=== PATIENT | female | born 2005 | race Caucasian/White ===

== ENCOUNTER 2025-10-14 03:04 | Emergency (ER) | payer OTHER, SELFPAY ==
[2025-10-14 03:10] VITALS: BP 159/112; PULSE 125; RESP 28; TEMP 36.9; O2SAT 100
--- NOTE | 2025-10-14 03:16 | ED.ALLEREA ---
HPI - Allergic Reaction General Chief complaint: Allergic Reaction Stated complaint: allergic reaction Time Seen by Provider: 10/14/25 03:14 History of Present Illness HPI narrative: 20-year-old otherwise healthy female presenting to the ER with suspected allergic reaction. She was out with friends during a friend's [place] gathering where she was drinking and eating. She is not sure what her allergic reaction is potentially 2 but 2 hours ago she started noticing some red splotchy discoloration on her face and neck and now she is having some scratchy sensations with swallowing and feels like the redness is worsening. Has a history of something similar happening with coconut exposure but does not think she had any coconut today. She tried a new Tequila but otherwise nothing out of the ordinary that she can remember. Denies any nausea, vomiting, vision changes, diarrhea, abdominal pain, fever, chills. She states her face feels warm and flushed as well as having the throat sensation of scratchiness but no difficulty swallowing or difficulty with secretions. No history of anaphylaxis. Does not have any allergies to medications that she knows of. Related Data Allergies Allergy/AdvReac Type Severity Reaction Status Date / Time coconut AdvReac Mild Hives Verified 10/14/25 03:06 Review of Systems Review of Systems: As reviewed above in HPI All systems reviewed & are unremarkable except as noted in HPI and below Exam Narrative: GENERAL: Tachypneic and mildly tachycardia, red splotchy discoloration over the face and anterior neck HEAD: [Normocephalic, atraumatic.] EYES: [PERRLA and EOMI.] ENT: Nares clear, no rhinorrhea or epistaxis. Mucous membranes moist. NECK: Supple. CHEST: No wheezing, or respiratory distress. Mild tachypnea noted HEART: [Regular rate and rhythm]. No murmur heard. [Normal peripheral pulses.] ABDOMEN: [Soft, nondistended], [nontender], [No rigidity or guarding] EXTREMITIES: Normal range of motion. [No edema.] SKIN: red splotchy discoloration over the face and anterior neck NEURO: [No focal deficits]. Alert and oriented [x3.] PSYCH: [Normal mood and affect.] Course Vital Signs Vital signs: Vital Signs Temperature 36.9 C 10/14/25 03:10 Pulse Rate 125 H 10/14/25 03:10 Respiratory Rate 28 H 10/14/25 03:10 Blood Pressure 159/112 H 10/14/25 03:10 Pulse Oximetry 100 10/14/25 03:10 Oxygen Delivery Room Air 10/14/25 03:10 Temperature 36.9 C 10/14/25 03:10 Pulse Rate 90 10/14/25 04:05 Respiratory Rate 18 10/14/25 04:05 Blood Pressure 122/74 10/14/25 04:05 Pulse Oximetry 98 10/14/25 04:05 Oxygen Delivery Room Air 10/14/25 03:10 MDM MDM Narrative Medical decision making narrative: 20-year-old otherwise healthy female presenting to the ER with suspected allergic reaction. She was out with friends during a friend's [place] gathering where she was drinking and eating. She is not sure what her allergic reaction is potentially 2 but 2 hours ago she started noticing some red splotchy discoloration on her face and neck and now she is having some scratchy sensations with swallowing and feels like the redness is worsening. Has a history of something similar happening with coconut exposure but does not think she had any coconut today. She tried a new Tequila but otherwise nothing out of the ordinary that she can remember. Denies any nausea, vomiting, vision changes, diarrhea, abdominal pain, fever, chills. She states her face feels warm and flushed as well as having the throat sensation of scratchiness but no difficulty swallowing or difficulty with secretions. No history of anaphylaxis. Does not have any allergies to medications that she knows of. Patient does have some red splotchy discoloration towards her neck and face consistent with hives. She endorses scratchy throat sensation but has a patent oropharynx. No uvular edema or deviation. No base of tongue swelling. No wheezing or decreased air entry. Symptoms consistent with allergic reaction. Low suspicion and flexes. She was given Pepcid, diphenhydramine, fluids, steroids and basic labs were obtained. She was placed on monitor and observe. Discussed with her epinephrine if needed but currently she is speaking in full clear sentences without any respiratory distress and overall well-appearing. Symptoms completely resolved after antihistamines and steroids. She feels much better. All vital signs are normal. No tachycardia, tachypnea or blood pressure concerns. No further rebound symptoms while observed here for several hours. Laboratory studies are largely unremarkable. Did discuss with her unknown cause of her allergic reaction but will prescribe her epinephrine autoinjector in case she has a severe allergic reaction to anything in the future. Given return precautions and patient verbalized understanding and she was safe for discharge. Differential Diagnosis Differential Diagnosis: Allergic reaction versus anaphylaxis Lab Data MDM Lab Attestation statement: I personally reviewed the patient's lab results. 10/14/25 03:20 10/14/25 03:20 Labs: Lab Results 10/14/25 Range/Units 03:20 WBC 11.7 H (4.5-10.0) K/mm3 RBC 4.55 (4.2-5.4) M/mm3 Hgb 14.1 (12.0-15.0) g/dL Hct 40.8 (37.0-47.0) % MCV 89.7 (80-100) fl MCH 31.0 (26-34) pg MCHC 34.6 (32-36) g/dl RDW 12.1 (11.5-14.5) % Plt Count 328 (150-375) k/mm3 MPV 9.2 (7.4-10.4) fl Immature Gran % (Auto) 0.3 (0-0.5) % Neut % (Auto) 47.6 (45.5-73.1) % Lymph % (Auto) 42.2 (18.3-44.2) % Thayer % (Auto) 7.3 (2.6-8.5) % Eos % (Auto) 2.0 (0-4.4) % Baso % (Auto) 0.6 (0.2-1.2) % Lymph # (Auto) 4.94 H (0.9-3.2) K/mm3 Thayer # (Auto) 0.9 H (0.1-0.6) K/mm3 Eos # (Auto) 0.2 (0-0.3) K/mm3 Baso # (Auto) 0.1 (0.0-0.1) K/mm3 Abs Immat Gran (auto) 0.03 (0.00-0.031) K/mm3 Absolute Neuts (auto) 5.6 (1.3-6.7) K/mm3 Absolute Nucleated RBC 0.000 (0.0-0.012) K/mm3 Nucleated RBC % 0.0 (0.0-0.2) % Sodium 139 (137-145) mmol/L Potassium 3.4 (3.4-5.0) mmol/L Chloride 105 (98-107) mmol/L Carbon Dioxide 24 (22-30) mmol/L Anion Gap 10 (4-12) mmol/L BUN 12 (7-17) mg/dL Creatinine 0.74 (0.7-1.0) mg/dL Estim Creat Clear Calc Not Reportable Estimated GFR > 60 (59 - ) Glucose 104 (65-110) mg/dL Calcium 10.0 (8.4-10.2) mg/dL Discharge Plan Discharge Clinical Impression: Allergic reaction Patient Disposition: Home Condition: Stable Instructions: Antibiotic Form, Urticaria (ED), Anaphylaxis (ED), Acute Rash (ED), Allergies (ED) Additional Instructions: Treated for an allergic reaction. Will prescribe you epinephrine pending case of a severe allergy to anything in the future. Return with any emergent concerns. If you have any residual remaining symptoms you can take additional 50 mg Benadryl up to 3 times a day. Return if you experience throat closing sensation, losing consciousness, difficulty breathing, any other emergent concerns. If you end up using the epinephrine pen during any other episodes in the future please seek medical attention afterwards. Patient Language: Kittitian Prescriptions: New epinephrine [EpiPen 2-Vernon] 0.3 mg/0.3 mL auto-injector 0.3 mg IM ONCE Qty: 2 0RF Rx Instructions: as a single dose; may repeat once Follow-up/Referrals: PHYSICIAN,VOCAL MUSIC TEACHER [Primary Care Provider, Internal Medicine] Time of Disposition: 04:48
[2025-10-14] MEDS: SODIUM CHLORIDE 0.9% IV 1,000 ML 999 ML IV CONT (03:23)
[2025-10-14 03:25] LABS: Hematocrit 40.8 % (37.0-47.0); Hemoglobin 14.1 g/dL (12.0-15.0); Immature Granulocyte Percent A 0.3 % (0-0.5); Lymphocytes Absolute Auto 4.94 K/mm3 (0.9-3.2); Mean Corpuscular HGB Conc 34.6 g/dl (32-36); Mean Corpuscular Hemoglobin 31.0 pg (26-34); Mean Corpuscular Volume 89.7 fl (80-100); Nucleated Red Blood Cells Absolute Auto 0.000 K/mm3 (0.0-0.012); Nucleated Red Blood Cells Perc 0.0 % (0.0-0.2); Platelet Count Result 328 k/mm3 (150-375); Red Blood Count 4.55 M/mm3 (4.2-5.4); White Blood Count 11.7 K/mm3 (4.5-10.0)
[2025-10-14] MEDS: FAMOTIDINE 20 MG/2 ML VIAL IV PUSH (03:29)
[2025-10-14 03:37] LABS: Anion Gap 10 mmol/L (4-12); Blood Urea Nitrogen 12 mg/dL (7-17); Calcium 10.0 mg/dL (8.4-10.2); Carbon Dioxide 24 mmol/L (22-30); Chloride 105 mmol/L (98-107); Estimated Glomerular Filt Rate > 60; Glucose 104 mg/dL (65-110); Potassium 3.4 mmol/L (3.4-5.0); Sodium 139 mmol/L (137-145)
[2025-10-14] MEDS: ONDANSETRON INJ 4 MG/2 ML VIAL IV PUSH (03:47)
[2025-10-14 04:05] VITALS: BP 122/74; PULSE 90; RESP 18; O2SAT 98
--- OUTSIDE RECORDS SUMMARY | 2025-10-14 04:50 | XMS_ITS | Encounter Summary ---
Author Organization [facility] Address [address] [place] [address] Care Team Providers Care Biometrics Instructor Name Role Phone Jeff Mezt MD Primary Care Provider [phone] Reason for Visit * Reason Onset Date Comments Refill Request 09/30/2018 Encounter Details Date Type Department Care Team (Late st Contact Info) Description 09/30/2018 Telephone [facility] - [facility] [address] [place] [address] Jeff Metz MD [address] [place] [address] Refill Request Social History Tobacco Use Types Packs/Day Years Used Date Smoking Tobacco: Never Assessed Comments Unknown Sex and Gender Information Value Date Recorded Sex Assigned at Not on file Legal Sex Female 8:54 AM CDT Gender Identity Not on file Sexual Orientation Not on file documented as of this encounter Plan of Treatment Not on file documented as of this encounter Visit Diagnoses Not on filedocumented in this encounter Additional Health Concerns Infection Onset Date Last Indicated Resolved Time COVID-19 Under Investigation 07/04/2020 07/04/2020 07/05/2020 7:04 PM CDT documented as of this encounter Care Teams Biometrics Instructor Relationship Specialty Start Date End Date Jeff Metz MD [address] [place] [address] PCP - General Pediatrics 07/21/17 documented as of this encounter
--- OUTSIDE RECORDS SUMMARY | 2025-10-14 04:50 | XMS_ITS | Patient Health Record ---
Author Organization [facility] Address [address] [place], [place] [address] Care Team Providers Care Coil Placer Name Role Phone PT DOESNT KNOW NAME, . Primary Care Provider Lynne vailable Allergies No Known Allergies Reason For Referral No Information Medications Medication SIG (Take, Route, Frequency, Duration) Notes Start Date End Date Status Halog 0.1 % 1 application Externally Twice a day; Duration: 30 days 07/31/2020 Not-Taking PROzac Active Triamcinolone Acetonide 0.1 % 1 application to trunk/ext Externally Twice a day; Duration: 30 days 07/31/2020 Not-Taking Immunizations Vaccine Route Administration Date Status Comme nts Influenza, unspecified formu lation (CPT 40163 Inactive) Unknown 08/09/2018 Administered Influenza, unspecified formu lation (CPT 44990 Inactive) Unknown 07/18/2020 Administered Influenza, unspecified formu lation (CPT 95385 Inactive) Unknown 08/18/2023 Administered Pneumococcal polysaccharide PPV23 Unknown 01/31/2019 Re fused Pneumococcal polysaccharide PPV23 Unknown 05/24/2024 Re fused Social History Tobacco Use: Social History Observation Description Date Details (start date - stop date) Former Smoker NA - NA Tobacco Use/Smoking Question Answer Notes Are you a former smoker Problems Problem Type SNOMED Code ICD Code Onset Dates Problem Status W/U Status Risk Notes Problem Psoriasis vulgaris (258178241) Psoriasis vulgaris (L40.0) Active confirmed Unresponsive to dander shampoo and 1% hydrocortisone, will treat withvtama samples daily Problem Multiple benign melanocytic nevi (570664152) Multiple nevi (D22.9) Active confirmed Benign appearin g nevi were noted on head, neck, trunk or extremities. Patient education was provided including the ABCDs of melanoma and identification of nonmelanoma skin cancers as well as the importance of sun protection. Plan Of Treatment No Information Insurance Providers Payer Name Payer Address Payer Phone Subscriber Number Group Number Insured Name Patient Relationship to Insured Coverage Start Date Coverage End Date [facility] [address] [address] [place], [place] [id number] [employer] Child - Insured has Financial Responsibility Medical (General) History Medical History History ICD Code depression
--- OUTSIDE RECORDS SUMMARY | 2025-10-14 04:50 | XMS_ITS | Clinical Summary ---
Author Organization [facility] Address [address] [place] [address] Care Team Providers Care Geomagnetician Name Role Phone Katya Morales MD, Jeff Krishnamurthy Primary Care Provider Allergies No known active allergies Medications ferrous sulfate 325 mg (65 mg of elemental iron) tablet 12/30/2018 Active FLUoxetine (PROzac) 40 mg capsule Take 40 mg by mouth daily 10/01/2020 Active norethindrone-e. 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 Gender Identity Not on file Sexual Orientation Not on file Last Filed Vital Signs Vital Sign Reading Time Taken Comments Blood Pressure - - Pulse - - Temperature - - Respiratory Rate - - Oxygen Saturation - - Inhaled Oxygen Concentration - - Weight 111.6 kg (246 lb) 07/31/2021 3:44 PM CDT Height 172.7 cm (5' 8) 07/31/2021 3:44 PM CDT Body Mass Index 37.4 07/31/2021 3:44 PM CDT Plan of Treatment Not on file Insurance [facility] CHOICE PLUS [facility] CHOICE PLUS Care Teams Geomagnetician Relationship Specialty Start Date End Date Jeff Aldana Jr., MD [address] [place] [address] PCP - General Pediatrics 03/11/21
--- OUTSIDE RECORDS SUMMARY | 2025-10-14 04:50 | XMS_ITS | Clinical Summary ---
Author Organization [facility] behaview Address [address] [place] [address] Care Team Providers Care Punchboard Inserter Name Role Phone Jeff Metz MD Primary Care Provider [phone] Source Comments [facility],non-owned Affiliates and Associated Physician Practices is amultiple site organization consisting of ambulatory clinics and hospital sitesin [place], [place], [place] and [place]. This disclosure is being madepursuant to the Care Everywhere program and may not contain all information available regarding this patient. Last updated 18.[facility] Allergies No known active allergies Medications * This document contains information received from the source organization and may not represent a complete record from that organization. * Be aware that medications may not be up to date on this document. Alwaysverify current medications with the patient. methylphenidate CR (CONCERTA) 18 MG tablet Take 18 mg by mouth 11/24/2017 Active FEROSUL 325 (65 FE) MG tablet 12/30/2018 Activ e FLUoxetine (PROZAC) 40 MG capsule Take 40 mg by mouth once daily 10/01/2020 Active citalopram (CELEXA) 20 MG tablet Take 10 mg by mouth once daily 10/14/2020 Active vitamin D, ergocalciferol, (DRISDOL) 1.25 MG (42959 UT) capsule TAKE 1 CAPSULE BY MOUTH EVERY 7 DAYS 4 capsule 3 03/20/2021 Active ISIBLOOM 0.15-30 MG-MCG tablet TAKE 1 TABLET BY MOUTH EVERY DAY USING ONLY 4 PLACEBO PILLS 28 tablet 1 05/12/2021 Active Active Problems Patient Care Coordination No te Formatting of this note migh t be different from the original. Psychiatrist: Dr. Kwame Boudreaux at [facility] [phone] Problem Noted Date Diagnosed Date PCOS (polycystic ovarian syndrome) 04/09/2020 Assessment & Plan (04/09/2020 4:22 PM CDT): Patient presenting to adolescent clinic for routine follow up of PCOS currently managed with isibloom OCP. Patient reports consistent timing and duration of menstrual cycles but with significant increase in bleeding over the last ~6 months. Also reports 1 week of white vaginal discharge that has since resolved that was not associated with pain, pruritus, discomfort. Has been having abdominal pain, suprapubic and bilateral lower quadrants. Sexually active but with same partner as August 2019 when she was screened for STIs and negative. Low suspicion that bleeding and 1 week of discharge represents acute infection; more likely reflective of increased estrogen activity. Abdominal pain also not consistent with UTI/cystitis, may be related to ovarian cyst vs functional abdominal pain. Plan - switch to Lo Estrin due to increased bleeding with periods - urinalysis today - Abdominal and pelvic ultrasound as outpatient for abdominal pain; recommended about 1 week after next period Pediatric obesity 08/22/2018 Assessment & Plan (04/09/2020 4:25 PM CDT): BMI in clinic toda 34.17; weight has been stable compared to prior visits. At prior visit in August 2019 patient and parent expressed concern for binge eating habits which have since improved with both personal and family therapy, family meal time. States that desire to binge remains present but is easier to control. Mother expressed interest in meeting with tubing tester about reviewing Kaley's nutritional requirements. Plan - amb referral nutrition Assessment & Plan (08/22/2018 9:30 AM CDT): Currently BMI at 30.75 from 29.73 from 12/2017. Secondary amenorrhea 08/09/2017 Assessment & Plan (08/22/2018 9:02 AM CDT): Plan: Continue Apri. Follow up in Family History Medical History Relation Name Comments Drug Abuse Father in past Migraine Maternal Grandmother Migraine Mother with aura Celiac Disease Sister Diabetes - Type 1 Sister half mango purcell, age 10 Relation Name Status Comments Father Maternal Grandmother Mother Sister Social History Tobacco Use Types Packs/Day Years Used Date Smoking Tobacco: Never Smokeless Tobacco: Never Alcohol Use Standard Drinks/Week Comments No 0 (1 standard drink = 0.6 oz pur e alcohol) Comments No Sex and Gender Information Value Date Recorded Sex Assigned at Not on file Legal Sex Female 8:54 AM CDT Gender Identity Not on file Sexual Orientation Not on file Last Filed Vital Signs Vital Sign Reading Time Taken Comments Blood Pressure 145/88 05/24/2021 8:00 AM CDT Pulse 90 05/24/2021 8:25 AM CDT Temperature 37.2 C (99 F) 05/24/2021 6:01 AM CDT Respiratory Rate 21 05/24/2021 8:25 AM CDT Oxygen Saturation 98% 05/24/2021 8:25 AM CDT Inhaled Oxygen Concentration - - Weight 110.1 kg (242 lb 11.6 oz) 05/24/2021 6:01 AM CDT Height 173.7 cm (5' 8.39) 10/28/2020 2:58 PM CS T Body Mass Index - - Plan of Treatment Health Maintenance Due Date Last Done Comments HPV VACCINE (1 - 3-dose series) 2018 MENINGOCOCCAL (Group B) VACCINE SHARED DECISION-MAKING (1 of 2 - Standard) 2019 HEPATITIS C SCREENING 06/20/2021 CHLAMYDIA/GONORRHEA SCREENING 01/29/2022 01/29/2021, 10/28/2020, 08/31/2019, Additional history exists DTAP/TDAP/TD VACCINES (1 - Tdap) 2022 HEPATITIS B VACCINE (1 of 3 - 19+ 3-dose series) 2022 DEPRESSION SCREENING 11/01/2024 COVID-19 VACCINE (1 - 2024- season) 2025 INFLUENZA VACCINE (#1) 2025 ZOSTER VACCINE (1 of 2) 2053 HIV SCREENING Completed 11/18/2020, 08/22/2018 HIB VACCINE Aged Out No longer eligi ble based on patient's age to complete this topic MENINGOCOCCAL GROUPS A/C/Y/W VACCINE Aged Out No longer eligible based on patient's age to complete this topic PNEUMOCOCCAL VACCINE Aged Out No long er eligible based on patient's age to complete this topic Procedures Procedure Name Priority Date/Time Associated Diagnosis Comments HIV-1 HIV-2 ANTIBODY + HIV P24 AG PANEL Routine 11/18/2020 3:59 PM INSURANCE FOLLOW UP REP Routine screening for STI (sexually transmitted infection) CHLAMYDIA + GC AMPLIFIED PROBE Routine 10/28/2020 4:10 PM INSURANCE FOLLOW UP REP Routine screening for STI (sexually transmitted infection) PCOS (polycystic ovarian syndrome) from Last 3 Months or Most Recently Relevant to Health Maintenance Results * HIV-1 HIV-2 ANTIBODY + HIV P24 AG PANEL (11/18/2020 3:59 PM INSURANCE FOLLOW UP REP) Pathologist [facility] HIV1/2 Ab + P24 Ag Non Reactive Non Reactive 11/18/2020 5:17 PM INSURANCE FOLLOW UP REP [facility] Blood BLOOD SPECIMEN / Unknown Lab Venipuncture / Unknown 11/18/2020 3:59 PM INSURANCE FOLLOW UP REP 11/18/2020 4:13 PM INSURANCE FOLLOW UP REP Narrative [facility] - 11/18/2020 5:17 PM INSURANCE FOLLOW UP REP No Laboratory evidence of HIV infection. Elva Caicedo MD LAB - CHEMISTRY ORDERABL ES Final Result Performing Organization Address City/State/[facility] Co de Phone Number [facility] [address] [place] [id number] * CHLAMYDIA + GC AMPLIFIED PROBE (STL) (10/28/2020 4:10 PM INSURANCE FOLLOW UP REP) Pathologist [facility] Chlamydia Amplified Probe Negative Negative 10/29/2020 11:46 AM INSURANCE FOLLOW UP REP [facility] GC Amplified Probe Negative Negative 10/29/2020 11:46 AM INSURANCE FOLLOW UP REP [facility] Microbiology URINE / Unknown Collection / Unknown 10/28/2020 4:10 PM INSURANCE FOLLOW UP REP 10/28/2020 4:14 PM INSURANCE FOLLOW UP REP Narrative [facility] - 10/29/2020 11:46 AM INSURANCE FOLLOW UP REP Results based on detection/no detection of ribosomal RNA by amplified method. Elva Caicedo MD LAB - MICROBIOLOGY ORDER ALEKSANDAR Final Result [facility] [address] [place] [address], [facility] [phone] from Last 3 Months or Most Recently Relevant to Health Maintenance Insurance [facility] Care Teams Punchboard Inserter Relationship Specialty Start Date End Date Jeff Metz MD [address] [place] [id number] PCP - General Pediatrics 07/21/17
== END 2025-10-14 05:00 | disposition home or self-care (01) ==
PROVIDERS: Emergency Provider Student in an Organized Health Care Education/Training Program
DX: T78.40XA Allergy, unspecified, initial encounter (principal); X58.XXXA Exposure to other specified factors, initial encounter
CPT/HCPCS: 36415; 80048; 85025; 96361; 96374; 96375; 99284; J1200; J2405; J2919; J7030